=== PATIENT | male | born 2000 | race Two or more races ===

== ENCOUNTER 2022-02-07 17:25 | Emergency (ER) | payer BC, OTHER ==
[~2022-02-07] VITALS: Ht 170.2 cm; Wt 81.6 kg
[2022-02-07 17:25] VITALS: BP 119/80
== END 2022-02-07 21:44 | disposition left against medical advice (07) ==
LOC: ER 17:25
DX: M79.642 Pain in left hand (principal); M79.89 Other specified soft tissue disorders; Z53.21 Procedure and treatment not carried out due to patient leaving prior to being seen by health care provider; V48.5XXA Car driver injured in noncollision transport accident in traffic accident, initial encounter; Y93.89 Activity, other specified; Y92.89 Other specified places as the place of occurrence of the external cause; Y99.8 Other external cause status